=== PATIENT | male | born 1965 | race Caucasian/White ===

== ENCOUNTER 2017-06-27 09:11 | Inpatient (IN) | payer OTHER ==
[~2017-06-27] VITALS: Ht 167.6 cm; Wt 90.7 kg
[2017-06-27 09:51] LABS: ABSOLUTE BASOPHIL COUNT 0 /CUMM (0.0-0.2); ABSOLUTE EOSINOPHIL COUNT 0 /CUMM (0.0-0.7); ABSOLUTE MONOCYTE COUNT 0.5 /CUMM (0.10-0.60); BASOPHIL % 0.3 % (0.0-2.0); EOSINOPHIL % 0.5 % (0-5); GRANULOCYTE % 66.3 % (42.2-75.2); HEMATOCRIT 48.5 % (42-52); MEAN CORPUSCULAR HGB 29.5 PG (27.0-31.0); MEAN CORPUSCULAR VOLUME 86.7 FL (80.0-94.0); MEAN PLATELET VOLUME 7.9 FL (7.4-10.4); PLATELET COUNT 458 /CUMM (130-400); RBC DISTRIBUTION WIDTH 11.7 % (11.5-14.5); RED BLOOD CELL CT 5.59 /CUMM (4.70-6.10); WHITE BLOOD CELL COUNT 7.5 /CUMM (4.8-10.8)
--- NOTE | 2017-06-27 09:51 | ED AMS/SEIZURE/WEAK/DIZZY ---
History of Present Illness General Chief Complaint: Dizziness Stated Complaint: DIZZY X 1 WEEK Source: patient Exam Limitations: no limitations Vital Signs & Intake/Output Vital Signs & Intake/Output Vital Signs Date Time Temp Pulse Resp B/P B/P Pulse O2 O2 Flow FiO2 Mean Ox Delivery Rate 06/27 1205 92 180/124 06/27 1128 97.0 96 18 170/118 98 Room Air 06/27 0926 95.0 125 15 160/98 100 Room Air Room Air Allergies Coded Allergies: No Known Allergies (06/27/17) Triage Note: PT TO ED FOR C/C OF FEELING DIZZY X 1 WEEK, WORSE WHEN STANDING UP. WHEN PT GETS UP HE GETS NAUSEAUS. PT REPORTS 3 WEEKS AGO HE HAD R EYE BLURRINESS WHICH HAS NOT RESOLVED AND A BOUT OF VERTIGO PER PT. ALL NEUROS INTACT IN TRIAGE. Triage Nurses Notes Reviewed? yes Onset: Gradual Duration: week(s): (2), constant, continues in ED, getting worse Timing: multiple episodes today Injury Environment: home Severity: mild, moderate No Modifying Factors: none HPI: 51-year-old male with no past medical history on no medications presents for evaluation of dizziness, lightheadedness, nausea and weakness for the past 2 weeks. Patient states that the dizziness is present when he goes from a sitting to a standing position or with movement of his head. It improves with rest. If he is laying down and not moving he has no symptoms. He states when he gets dizzy he also gets nauseous and feels like he is going to vomit. No abdominal pain chest pain or shortness of breath. He states he has been able to tolerate fluids. He states that about one week ago he got so dizzy and lightheaded that he actually fell over and hit the right side of his head. He did not lose consciousness. He also states having blurred vision mostly in the right eye for the past couple weeks. No focal weakness numbness or tingling. No hemoptysis lower extremity edema. No recent surgery, no history of blood clots. He has not seen a doctor in over 5 years. ([place]) Past History Travel History Traveled to [place] past 21 day No Medical History Any Pertinent Medical History? 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 No ([place]) Review of Systems Review of Systems Constitutional: Reports: weakness. EENTM: Reports: blurred vision. Respiratory: Reports: no symptoms. Cardiovascular: Reports: no symptoms. GI: Reports: no symptoms. Genitourinary: Reports: no symptoms. Musculoskeletal: Reports: no symptoms. Skin: Reports: no symptoms. Neurological/Psychological: Reports: see HPI (DIZZY, LIGHTHEADED, PRESYNCOPE). Hematologic/Endocrine: Reports: no symptoms. Immunologic/Allergic: Reports: no symptoms. All Other Systems: Reviewed and Negative ([place]) Physical Exam Physical Exam General Appearance: well developed/nourished, no apparent distress, alert, awake Head: normal appearance, THERE IS A HEALED LACERATION ABOVE THE RIGHT EYE. nO B[place] TENDERNESS EXTRAOCULAR MOTION IS INTACT WITHOUT PAIN RACCOON EYES OR TUBBS SIGNS Eyes: Bilateral: normal appearance, PERRL, EOMI. Ears, Nose, Throat: normal pharynx, normal ENT inspection, hearing grossly normal Neck: normal inspection, supple, full range of motion, NO jvd NO CAROTID BRUITS Respiratory: normal breath sounds, chest non-tender, no respiratory distress, lungs clear Cardiovascular: normal peripheral pulses, tachycardia (116) Peripheral Pulses: 2+ radial (R), 2+ radial (L) Gastrointestinal: soft, non-tender Back: normal inspection, normal range of motion Extremities: normal range of motion Neurologic/Psych: no motor/sensory deficits, awake, alert, oriented x 3 Skin: intact, normal color, warm/dry Lymphatic: no anterior cervical lele Comments: he has an intact gag reflex Core Measures ACS in differential dx? Yes CVA/TIA Diagnosis Yes NIH Stroke Scale (24 Hours) NIH Stroke Scale (24 Hours) Response Value Level of Consciousness alert 0 LOC Questions answers both correctly 0 LOC Commands obeys both correctly 0 Best Gaze normal 0 Visual Jalloh no visual loss 0 Facial Paresis normal 0 Motor Arm - Left no drift 0 Motor Arm - Right no drift 0 Motor Leg - Left no drift 0 Motor Leg - Right no drift 0 Limb Ataxia no ataxia 0 Sensory normal 0 Best Language no aphasia 0 Dysarthria normal articulation 0 Extinction and Inattention no neglect 0 Total 0 Sepsis Present: No Sepsis Focused Exam Completed? No ([place]) Progress Differential Diagnosis: arrythmia, anemia, benign positional vertigo, CVA/stroke , dehydration, electrolyte imbalance, intracranial Hem., intracranial mass/tumor , labrynthitis, Meniere's disease, migraine HALE, pneumonia, postural hypotension, presyncope, post-traumatic vertigo, subarachnoid Hem., UTI/pyelo Plan of Care: Orders Procedure Date/time Status Heart Healthy Diet 06/27 D Active Patient Data 06/27 1343 Active ED Holding Orders 06/27 1341 Active Admit to inpatient 06/27 1341 Active Vital Signs 06/27 1341 Active Code Status 06/27 1341 Active Add-on Test (ER Only) 06/27 1038 Active Add-on Test (ER Only) 06/27 1033 Active Add-on Test (ER Only) 06/27 1014 Active TSH REFLEX 06/27 0945 Complete SERUM OSMOLALITY 06/27 0945 Complete ETHANOL 06/27 0945 Complete ACETONE 06/27 0945 Complete D-DIMER 06/27 0940 Complete MISTAKE 06/27 0939 Active URINALYSIS 06/27 0939 Complete TROPONIN LEVEL 06/27 0939 Complete MAGNESIUM 06/27 0939 Complete COMPREHENSIVE METABOLIC PANEL 06/27 0939 Complete CBC WITHOUT DIFFERENTIAL 06/27 0939 Complete EKG 06/27 0930 Active Current Medications Sig/[place] Start time Last Medication Dose Stop Time Status Admin Metoprolol Tartrate 5 MG ONCE ONE 06/27 1400 AC (Lopressor) 06/27 1401 Laboratory Tests 06/27/17 1326: Urine Color YEL, Urine Clarity CLEAR, Urine pH 6.0, Ur Specific [place] <= 1.005 , Urine Protein NEG, Urine Ketones 40 H, Urine Nitrite NEG, Urine Bilirubin NEG , Urine Urobilinogen 0.2, Ur Leukocyte Esterase NEG, Ur Microscopic EXAM NOT REQUIRED, Urine Hemoglobin NEG, Urine Glucose >=1000 H 06/27/17 0945: Anion Gap 19 H, Estimated GFR > 60, BUN/Creatinine Ratio 30.0 H, Glucose 488 H, Serum Osmolality 296 H, Calcium 9.9, Magnesium 1.9, Total Bilirubin 1.1, AST 30, ALT 52, Alkaline Phosphatase 99, Troponin I < 0.01, Total Protein 7.3, Albumin 4.4, Globulin 2.9, Albumin/Globulin Ratio 1.5, TSH &T3 &Free T4 Intrp 3.770, CBC w Diff NO MAN DIFF REQ, RBC 5.59, MCV 86.7, MCH 29.5, MCHC 34.0, RDW 11.7, MPV 7.9, Gran % 66.3, Lymphocytes % 26.5, Monocytes % 6.4, Eosinophils % 0.5, Basophils % 0.3, Absolute Granulocytes 5.0, Absolute Lymphocytes 2.0, Absolute Monocytes 0.5, Absolute Eosinophils 0, Absolute Basophils 0, Serum Alcohol < 10.0, Acetone Level NEGATIVE 06/27/17 0940: D-Dimer High Sensitivty < 200 ] Patient seen and evaluated. He's been having dizziness and lightheadedness with movement worse when going from sitting to standing. He is orthostatic dropping from 160 systolic to 120 systolic. He becomes very dizzy and unbalanced when going from sitting to standing. His sugar is also elevated to 488 with an anion gap of 19. He also had an episode of head trauma when he became very dizzy striking the right side of the front of his head. There is no loss of consciousness. CT scan of the head shows a possible cerebellar infarct. His NIH stroke scale currently is 0. He has a gag reflex. He is protecting his airway. Because of possible head trauma radiologist recommends ruling out a vertebral artery dissection. CTA of the head and neck was ordered. Additionally patient has diffuse EKG changes. He has flipped T waves and ST depressions. No chest pain no shortness of breath and initial troponin is negative. Patient will need to be admitted to the hospital for further evaluation. For now will be given fluid boluses pending result of CTA. CTA does not show any evidence of vertebral artery dissection. Aspirin ordered. We'll consult neurology to ensure patient does not require early interventional therapy however patient has been having these symptoms for greater than a week now. Patient will be admitted to telemetry for further evaluation. He will require cardiology consult, neurology consult, IV fluids, endocrine consult, serial labs, serial chest x-rays, telemetry monitoring, MRI of the brain. Case discussed with Dr. Perera he agrees. Dr. PERERA spoke with neurology WHO RECCOMENDS lowering the patient's blood pressure with Lopressor 5 mg. Otherwise do not believe he needs any immediate intervention that would require transfer. Patient will be admitted to telemetry. Diagnostic Imaging: Viewed by Me: CT Scan. Discussed w/RAD: CT Scan. Radiology Impression: PATIENT: SHARON NG PRESENT AGE: 51 PATIENT ACCOUNT NO: [id number] : 65 LOCATION: [facility] ORDERING PHYSICIAN: [place] MINOR SERVICE DATE: 06/27/17 EXAM TYPE: CAT - CT HEAD WO IV CONTRAST EXAMINATION: CT HEAD WITHOUT CONTRAST CLINICAL INFORMATION: Trauma. Question intracranial hemorrhage. Dizziness causing fall with head strike one week ago. COMPARISON: No relevant prior imaging. TECHNIQUE: Contiguous axial imaging was performed from the skull base to vertex without intravenous administration of contrast. DLP: 619.86 mGy-cm FINDINGS: There is an acute triangular infarct within the vascular territory of the left posterior inferior cerebellar artery. No evidence of hemorrhagic transformation. Mass effect within the posterior fossa causes subtle distortion of the fourth ventricle. No clear evidence of obstructive hydrocephalus. There is some hyperdensity within the sella turcica. The etiology of this finding is uncertain. There is no suprasellar mass effect or chiasmatic compression. The calvarium and skull base are intact. Mastoid air cells and middle ear cavities are well aerated. Visualized paranasal sinuses are well-aerated. IMPRESSION: There is acute infarct within the vessel territory of the left posterior inferior cerebellar artery. No evidence of hemorrhagic transformation. Mass effect causes subtle distortion of the fourth ventricle without evidence of overt obstructive hydrocephalus. Given the clinical history of recent trauma the possibility of a vertebral artery dissection should be considered and a CT angiogram of the neck can be obtained to provide better anatomic characterization of the vessels. This critical result was discussed with [place] Brewster at 06/27/2017 11:45 AM and it was ascertained that the content and urgency of the report was understood at the time of direct communication. DICTATED BY: Gopal Contreras MD DATE/TIME DICTATED:06/27/171139 MEDICAL SCIENTIFIC LIAISON: MARK DATE/TIME TRANSCRIBED:06/27/171139, PATIENT: SHARON NG PRESENT AGE: 51 PATIENT ACCOUNT NO: [id number] : LOCATION: [facility] ORDERING PHYSICIAN: Wilton MINOR SERVICE DATE: EXAM TYPE: CAT - CT HEAD ANGIOGRAM; CT NECK ANGIOGRAM EXAMINATION: CT HEAD ANGIOGRAM, CT NECK ANGIOGRAM CLINICAL INFORMATION: Cerebellar stroke. Question vertebral artery dissection. COMPARISON: CT scan of the head 2017. TECHNIQUE: Patternmaker [employer] Bench images were obtained. A CT angiogram of the head and neck was performed in the arterial phase after the intravenous administration of 95 mL Optiray 350. Delayed postcontrast images of the head were also obtained. MIP reconstructions were generated in multiple orientations at the acquisition workstation. Multiple three-dimensional surface rendered images and maximum intensity projection images were generated on a dedicated 3-D lab workstation. Arterial stenoses are measured in accordance with NASCET criteria or similar method if applicable. Total exam dose-length product 1071.03 mGy-cm FINDINGS: Head: An acute infarct within the vascular territory of left posterior inferior cerebellar artery is redemonstrated. There is no abnormal intracranial mass or enhancement on postcontrast images. Mass effect related to the infarct causes subtle distortion of the fourth ventricle. No overt hydrocephalus. De La Torre-white matter differentiation is otherwise preserved with no evidence of acute ischemia elsewhere within the brain. The calvarium and skull base are intact. Mastoid air cells and middle ear cavities are well aerated. Visualized paranasal sinuses are well-aerated. CT angiogram neck: The aortic arch apex is normal and the origins of major aortic branches are grossly patent. The proximal aspect of the left common carotid artery and left vertebral artery are suboptimally assessed due to the extent of streak artifact from intravenous contrast within the left internal jugular vein. Grossly no stenosis of the common carotid arteries. A small amount of atheromatous plaque involves the carotid bifurcations. No stenosis of the extra cranial internal carotid arteries. The cervical segments of the vertebral arteries as well as their origins are grossly patent and there is no evidence of acute vascular dissection. CT angiogram head: Eccentric atheromatous plaque causes mild focal narrowing involving the left intradural vertebral artery segments just distal to its dural insertion and there is also mild focal narrowing involving the midportion of the basilar artery best illustrated on coronal MIP image 10 of 17 series 206. The intracranial internal carotid arteries are widely patent. There is a shallow laterally projecting contour abnormality involving the extradural portion of the cavernous segment of the right internal carotid artery best illustrated on axial image 424 of 608 series 2. This finding either may represent a small plaque ulceration or perhaps a shallow aneurysm. Mild focal narrowing involving the paraclinoid segment of the right internal carotid artery. There is irregular moderate to high-grade narrowing involving the proximal M2 branches of the right middle cerebral artery. Otherwise no high-grade stenosis or proximal large vessel occlusion within the intracranial vessels. Other: Soft tissues of the neck including the thyroid gland are unremarkable. Visualized lung apices are clear. IMPRESSION: An acute infarct involving the left posterior inferior cerebellar artery territory is redemonstrated. No evidence to suggest acute left vertebral artery dissection. There is a small amount of atheromatous plaque involving both carotid bifurcations. No stenosis of the extra cranial internal carotid arteries or cervical segments of the vertebral arteries. There is evidence of cerebrovascular disease as described above. For instance eccentric atheromatous plaque causes mild focal narrowing involving the intradural segment of left vertebral artery and the midportion of the basilar artery. Mild narrowing involving the paraclinoid segment of the right internal carotid artery is noted and there is moderate to severe irregular narrowing involving the proximal M2 branches of the right middle cerebral artery. Otherwise no high-grade stenosis or proximal large vessel occlusion. The left posterior inferior cerebellar artery is not clearly resolved on this examination. DICTATED BY: Ben NICOLE, Gopal Gordillo DATE/TIME DICTATED:06/27/171245 MEDICAL SCIENTIFIC LIAISON:MARK DATE/ TIME TRANSCRIBED:06/27/171245 CONFIDENTIAL, DO NOT COPY WITHOUT APPROPRIATE AUTHORIZATION. <Electronically signed in Other Vendor System> Initial ED EKG: SINUS TACHYCARDIA RATE 116, PROBABLE LEFT ATRIAL ABNORMALITY, ABNORMAL t WAVES CONSIDER ISCHEMIA DIFFUSE LEADS ([place]) Departure Departure Disposition: STILL A PATIENT Condition: Stable Clinical Impression Primary Impression: Cerebellar stroke Secondary Impressions: New onset type 2 diabetes mellitus, Orthostatic hypotension Departure Forms: Customer Survey General Discharge Information ([place]) Admission Note Spoke With: Qi Krishnan MD Documentation of Exam: Documentation of any treatments & extenuating circumstances including Concerns Regarding Discharge (functional status, medication knowledge or non-compliance, living conditions, etc.) that warrant an admission rather than observation: [The patient needs admission for blood pressure reduction, neurology consultation, aspirin therapy, control of hyperglycemia, neuro checks every 6 hours] Spoke with Dr. Simon the neurologist on-call who agreed with the plan of care. Agrees no interventional intervention is needed emergently at this time. PA/NUCLEAR WEAPONS MECHANICAL SPECIALIST Co-Sign Statement Statement: ED Attending supervision documentation- [X] I saw and evaluated the patient. I have also reviewed all the pertinent lab results and diagnostic results. I agree with the findings and the plan of care as documented in the PA's/NUCLEAR WEAP[employer] MECHANICAL SPECIALIST's documentation. [] I have reviewed the ED Record and agree with the PA's/NUCLEAR WEAPONS MECHANICAL SPECIALIST's documentation. [] Additions or exceptions (if any) to the PAs/NUCLEAR WEAPONS MECHANICAL SPECIALIST's note and plan are summarized below: [] (Dre Perera DO) (Dre Perera DO.)
--- NOTE | 2017-06-27 11:51 | CT SCAN REPORT ---
EXAMINATION: CT HEAD WITHOUT CONTRAST CLINICAL INFORMATION: Trauma. Question intracranial hemorrhage. Dizziness causing fall with head strike one week ago. COMPARISON: No relevant prior imaging. TECHNIQUE: Contiguous axial imaging was performed from the skull base to vertex without intravenous administration of contrast. DLP: 619.86 mGy-cm FINDINGS: There is an acute triangular infarct within the vascular territory of the left posterior inferior cerebellar artery. No evidence of hemorrhagic transformation. Mass effect within the posterior fossa causes subtle distortion of the fourth ventricle. No clear evidence of obstructive hydrocephalus. There is some hyperdensity within the sella turcica. The etiology of this finding is uncertain. There is no suprasellar mass effect or chiasmatic compression. The calvarium and skull base are intact. Mastoid air cells and middle ear cavities are well aerated. Visualized paranasal sinuses are well-aerated. IMPRESSION: There is acute infarct within the vessel territory of the left posterior inferior cerebellar artery. No evidence of hemorrhagic transformation. Mass effect causes subtle distortion of the fourth ventricle without evidence of overt obstructive hydrocephalus. Given the clinical history of recent trauma the possibility of a vertebral artery dissection should be considered and a CT angiogram of the neck can be obtained to provide better anatomic characterization of the vessels. This critical result was discussed with [place] Brewster at 06/27/2017 11:45 AM and it was ascertained that the content and urgency of the report was understood at the time of direct communication.
--- NOTE | 2017-06-27 13:03 | CT SCAN REPORT ---
EXAMINATION: CT HEAD ANGIOGRAM, CT NECK ANGIOGRAM CLINICAL INFORMATION: Cerebellar stroke. Question vertebral artery dissection. COMPARISON: CT scan of the head 06/27/2017. TECHNIQUE: Music Engineer images were obtained. A CT angiogram of the head and neck was performed in the arterial phase after the intravenous administration of 95 mL Optiray 350. Delayed postcontrast images of the head were also obtained. MIP reconstructions were generated in multiple orientations at the acquisition workstation. Multiple three-dimensional surface rendered images and maximum intensity projection images were generated on a dedicated 3-D lab workstation. Arterial stenoses are measured in accordance with NASCET criteria or similar method if applicable. Total exam dose-length product 1071.03 mGy-cm FINDINGS: Head: An acute infarct within the vascular territory of left posterior inferior cerebellar artery is redemonstrated. There is no abnormal intracranial mass or enhancement on postcontrast images. Mass effect related to the infarct causes subtle distortion of the fourth ventricle. No overt hydrocephalus. De La Torre-white matter differentiation is otherwise preserved with no evidence of acute ischemia elsewhere within the brain. The calvarium and skull base are intact. Mastoid air cells and middle ear cavities are well aerated. Visualized paranasal sinuses are well-aerated. CT angiogram neck: The aortic arch apex is normal and the origins of major aortic branches are grossly patent. The proximal aspect of the left common carotid artery and left vertebral artery are suboptimally assessed due to the extent of streak artifact from intravenous contrast within the left internal jugular vein. Grossly no stenosis of the common carotid arteries. A small amount of atheromatous plaque involves the carotid bifurcations. No stenosis of the extra cranial internal carotid arteries. The cervical segments of the vertebral arteries as well as their origins are grossly patent and there is no evidence of acute vascular dissection. CT angiogram head: Eccentric atheromatous plaque causes mild focal narrowing involving the left intradural vertebral artery segments just distal to its dural insertion and there is also mild focal narrowing involving the midportion of the basilar artery best illustrated on coronal MIP image 10 of 17 series 206. The intracranial internal carotid arteries are widely patent. There is a shallow laterally projecting contour abnormality involving the extradural portion of the cavernous segment of the right internal carotid artery best illustrated on axial image 424 of 608 series 2. This finding either may represent a small plaque ulceration or perhaps a shallow aneurysm. Mild focal narrowing involving the paraclinoid segment of the right internal carotid artery. There is irregular moderate to high-grade narrowing involving the proximal M2 branches of the right middle cerebral artery. Otherwise no high-grade stenosis or proximal large vessel occlusion within the intracranial vessels. Other: Soft tissues of the neck including the thyroid gland are unremarkable. Visualized lung apices are clear. IMPRESSION: An acute infarct involving the left posterior inferior cerebellar artery territory is redemonstrated. No evidence to suggest acute left vertebral artery dissection. There is a small amount of atheromatous plaque involving both carotid bifurcations. No stenosis of the extra cranial internal carotid arteries or cervical segments of the vertebral arteries. There is evidence of cerebrovascular disease as described above. For instance eccentric atheromatous plaque causes mild focal narrowing involving the intradural segment of left vertebral artery and the midportion of the basilar artery. Mild narrowing involving the paraclinoid segment of the right internal carotid artery is noted and there is moderate to severe irregular narrowing involving the proximal M2 branches of the right middle cerebral artery. Otherwise no high-grade stenosis or proximal large vessel occlusion. The left posterior inferior cerebellar artery is not clearly resolved on this examination.
--- NOTE | 2017-06-27 13:49 | History & Physical ---
Terrell Hassan MDapna 06/27/17 1349: General Information and HPI MD Statement: I have seen and personally examined SHARON NG and documented this H&P. The patient is a 51 year old M who presented with a patient stated chief complaint of [dizziness]. Source of Information: patient Exam Limitations: no limitations History of Present Illness: 51-year-old man with no past medical history came to [facility] with complaints of dizziness, nausea, vomiting with the right eye blurry vision for the past 1 week. Apparently patient was s in his usual state of health until 3 weeks ago, following which patient had right blurry vision. A week patient had ago patient said he "missed his steps"and had a fall with no loss of consciousness/ seizure/accidents. Patient had a abrasion in his right upper eyelid. Same day patient developed dizziness with nausea and vomiting twice. He denied palpitations, chest pain, abdominal pain, vision loss, loss of consciousness, imbalance, trauma, weakness, altered sensation. He endorses tingling and numbness in his feet and hands for the past 5 years. His dizziness, nausea were on and off for the past 1 week with no improvement. Patient went to the urgent care clinic today who referred them to the emergency room. 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 Home Who Do You Live With? self Services at Home: None Primary Language: Macedonian ETOH Use: occasional use Illicit Drug Use: marijuana Functional Ability ADLs Independent: dressing, eating, toileting, bathing. Ambulation: independent IADLs Independent: shopping, housework, finances, food prep, telephone, transportation , medication admin. Review of Systems Review of Systems Constitutional: Reports: no symptoms. EENTM: Reports: visual changes, eye pain. Cardiovascular: Reports: no symptoms. Respiratory: Reports: no symptoms. GI: Reports: nausea, vomiting. Genitourinary: Reports: no symptoms. Musculoskeletal: Reports: no symptoms. Exam & Diagnostic Data Last 24 Hrs of Vital Signs/I&O Vital Signs Date Time Temp Pulse Resp B/P B/P Pulse O2 O2 Flow FiO2 Mean Ox Delivery Rate 06/27 1557 98.3 87 16 173/115 96 Room Air 06/27 1408 97 162/120 06/27 1403 97.6 97 18 162/120 98 Room Air 06/27 1205 92 180/124 06/27 1128 97.0 96 18 170/118 98 Room Air 06/27 0926 95.0 125 15 160/98 100 Room Air Room Air Intake & Output 06/27 1600 06/27 0800 06/27 0000 Intake Total 1000 Output Total Balance 1000 Intake, IV 1000 Patient 200 lb Weight Weight Reported by Patient Measurement Method Physical Exam General Appearance Alert, Oriented X3, Cooperative, No Acute Distress HEENT RT EYE UPPER LID ABRASION Neck Supple, No JVD, No thryomegaly Cardiovascular Regular Rate, Normal S1, Normal S2, SYATOLIC MURMRUR Lungs Normal Air Movement Abdomen Normal Bowel Sounds, Soft, No Tenderness Neurological Normal Gait, Normal Speech, Strength at 5/5 X4 Ext, Normal Tone, Sensation Intact, Cranial Nerves 3-12 NL Extremities No Cyanosis, No Edema, Normal Pulses Last 24 Hrs of Labs/Adonis: Laboratory Tests 06/27/17 1326: Urine Color YEL, Urine Clarity CLEAR, Urine pH 6.0, Ur Specific [place] <= 1.005 , Urine Protein NEG, Urine Ketones 40 H, Urine Nitrite NEG, Urine Bilirubin NEG , Urine Urobilinogen 0.2, Ur Leukocyte Esterase NEG, Ur Microscopic EXAM NOT REQUIRED, Urine Hemoglobin NEG, Urine Glucose >=1000 H 06/27/17 0945: Anion Gap 19 H, Estimated GFR > 60, BUN/Creatinine Ratio 30.0 H, Glucose 488 H, Hemoglobin A1c 13.4 H, Serum Osmolality 296 H, Calcium 9.9, Magnesium 1.9, Total Bilirubin 1.1, AST 30, ALT 52, Alkaline Phosphatase 99, Troponin I < 0.01, Total Protein 7.3, Albumin 4.4, Globulin 2.9, Albumin/Globulin Ratio 1.5, TSH & T3 &Free T4 Intrp 3.770, CBC w Diff NO MAN DIFF REQ, RBC 5.59, MCV 86.7, MCH 29.5, MCHC 34.0, RDW 11.7, MPV 7.9, Gran % 66.3, Lymphocytes % 26.5, Monocytes % 6.4, Eosinophils % 0.5, Basophils % 0.3, Absolute Granulocytes 5.0, Absolute Lymphocytes 2.0, Absolute Monocytes 0.5, Absolute Eosinophils 0, Absolute Basophils 0, Serum Alcohol < 10.0, Acetone Level NEGATIVE 06/27/17 0940: D-Dimer High Sensitivty < 200 Diagnostic Data Other Results HEAD CT There is acute infarct within the vessel territory of the left posterior inferior cerebellar artery. No evidence of hemorrhagic transformation. Mass effect causes subtle distortion of the fourth ventricle without evidence of overt obstructive hydrocephalus. Given the clinical history of recent trauma the possibility of a vertebral artery dissection should be considered and a CT angiogram of the neck can be obtained to provide better anatomic characterization of the vessels. Assessment/Plan Assessment: 51-year-old gentleman with no past medical history came to [facility] with complaints of dizziness, lightheadedness, nausea and vomiting for the past one week on and off, found to have acute stroke, admitted to neuro cardiac telemetry for further evaluation and management ED treatment Patient had head CT, neck and head CTA-which showed An acute infarct involving the left posterior inferior cerebellar artery territory is redemonstrated. No evidence to suggest acute left vertebral artery dissection. There is a small amount of atheromatous plaque involving both carotid bifurcations. No stenosis of the extra cranial internal carotid arteries or cervical segments of the vertebral arteries. There is evidence of cerebrovascular disease as described above. For instance eccentric atheromatous plaque causes mild focal narrowing involving the intradural segment of left vertebral artery and the midportion of the basilar artery. Mild narrowing involving the paraclinoid segment of the right internal carotid artery is noted and there is moderate to severe irregular narrowing involving the proximal M2 branches of the right middle cerebral artery. Otherwise no high-grade stenosis or proximal large vessel occlusion. The left posterior inferior cerebellar artery is not clearly resolved on this examination. Admission vitals-blood pressure 160/98---> 170/118---> 180/124, temperature 97.6 , respiratory rate 18, pulse rate 97 saturating at room air Admission labs-WBC 7.5, hemoglobin 16.5, platelet 458, sodium 132, potassium 3.3 , BUNs 21, creatinine 0.7, glucose 488, TSH 3.7, alkaline phosphatase 99, troponin 0.01, sodium 132, potassium 3.3. ED treatment Patient was given 2 L of normal saline, K-Dur 10 40 mEq once, aspirin 325 mg once, IV metoprolol 5 mg once On-call neurologist Dr. Berger was informed-suggested no intervention at this time. Assessment and plan Acute cerebellar stroke Newly diagnosed diabetes mellitus Hypertension 1. Neuro checks, every 4 and Neurology consult. TPA couldn't be given because he passed the period for TPA. 2. MRI brain 3. Swallow eval, PT and OT. 4. Repeat CBC BEP in a.m. 5. Check lipid panel and continue aspirin 325 mg and statin. 6. Patient glucose 488-we'll do his HbA1c and start him on low-dose sliding scale NovoLog insulin. 7. Troponin negative with no EKG changes, we will do an echocardiogram to rule out any arrhythmia. 8. Patient has high blood pressure upon admission-not on any antihypertensive. We will start him on hydrochlorothiazide 25 mg daily for blood pressure control. Patient code full code Diet-consistent carbohydrate diet DVT prophylaxis-subcutaneous heparin As Ranked By This Provider Problem List: 1. Cerebellar stroke Core Measures/Misc (02/11) Acute Coronary Syndrome ACS Diagnosis: No Congestive Heart Failure Congestive Heart Failure Diagnosis No Cerebrovascular Accident CVA/TIA Diagnosis: Yes NIH Stroke Scale: Total 0 Date Last Known Well: 06/27/17 Time Last Known Well: 1619 Symptom Start Date: 06/13/17 Reason tPA not ordered Medical Contraindication Swallow Evaluation Pass Current/Past Hx AFib/AFlutter No VTE (View Protocol) VTE Risk Factors Age>40 No Mechanical VTE Prophylaxis d/t Other No VTE Pharm Prophylaxis d/t Other Sepsis (View protocol) Sepsis Present: No Zurdo Decker MD 06/27/17 1354: General Information and HPI Allergies/Medications Home Med list Aspirin (Aspirin*) 81 MG TAB.CHEW 1 TAB PO DAILY HEART HEALTH . Atorvastatin Calcium 40 MG TABLET 1 TAB PO 1700 LIPID . Hydrochlorothiazide 12.5 MG CAPSULE 1 TAB PO 7:30AM HTN . Insulin Detemir (Levemir) 100 UNIT/ML VIAL 10 UNITS SC BID DIABETES MELLITUS . Lancets 1 EACH EACH 1 UNIT SC BID DIABETES MELLITUS . Lisinopril 2.5 MG TABLET 1 TAB PO DAILY HTN . Meclizine HCl 12.5 MG TABLET 12.5 MG PO TID PRN DIZZINESS . Metformin Hydochloride (Glucophage) 500 MG TABLET 1 TAB PO 0800 & 1700 DIABETES MELLITUS WITH BREAKFAST AND WITH DINNER. Syringe & Needle,Insulin,1 Ml (Insulin Syringe) 29 GAUGE X 7/16" DISP.SYRIN 1 UNIT SC BID DIABETES MELLITUS . Resident Review Statement Resident Statement: examined this patient, discussed with credit intern, agreed with credit intern, reviewed EMR data (avail), discussed with nursing, discussed with case mgmt, reviewed images, amended to note Other Findings: 51 yo M with no significant pmh came in after feeling dizzy after his dinner one week ago suddenly and since then has been feeling nauseous, vomited twice so far , associated with dizziness but has been eating and drinking well. He also has right sided vision blurring, not worsening. H/o mechanical fall joelle, head hit, wound over right orbit, went to urgent care clinic who sent him to the ED. No h/o seizure, or head trauma other than mentioned above. No fever, chills, weakness/numbing of any part of the body. He endorses tingling sensation in his feet and hands since five years and was told the has has "pre-diabetes" but is not taking any medication. His CAT scan was positive for acute cerebellar stroke on the left side, but did not show any bleeding. His potassium was 3.3, which was repleted in the emergency department and had a high glucose of 488. EKG did not show any rhythm abnormality or signs of ischemia. Clinical examination reveals disturbance in his right upper temporal and lower nasal visual field, will need further reassessment. Of note, he passed bedside swallow screening. He is being admitted in tele floor for the management of following issues: #Acute CVA, cerebellar (ischemic) Patient has signs of acute ischemic CVA (clinical and radiological), but he has passed the period for tPA, so we will admit him to tele floor for serial neuro checks, MRI, neuro consult, ASA, statin, PT/OT/ST. We will give meclizine for symptomatic management of his dizziness. Will await neuro recs regarding further management and need for Carotid Dopplers. #Newly diagnosed Diabetes mellitus: Not taking meds. We will check his HbA1c, accuchecks TID/AC and HS, Insulin Novolog low dose only as he is insulin naive. Endocrinology consult has been placed, will follow the recs. #HTN new diagnosis Patient was found to be hypertensive since he presented to the emergency department. Will start him on hydro-chlorothiazide 25 mg oral daily for blood pressure control. Also will keep him on low-sodium diet. Will get an echocardiogram to rule out any structural functional abnormalities. #Diet: Diabetic diet, with low sodium. #DVT ppx: SQ Heparin #code status: Full code Kamar Houston MD 06/28/17 0922: Attending MD Review Statement Attending Statement Attending MD Statement: examined this patient, discuss w/resident/PA/BUCCARO, agreed w/resident/PA/BUCCARO, reviewed EMR data (avail), discussed with nursing, amended to note Attending Assessment/Plan: Please see my addendum as well.
--- NOTE | 2017-06-27 15:59 | Admission Certification ---
Admission Certification Certification Statement - As attending physician, I certify that at the time of - admission, based on clinical presentation, severity of - symptoms, need for further diagnostic testing and - therapeutic interventions, and risk of adverse outcomes - without in-hospital treatment, in my clinical assessment, - this patient requires an acute hospital stay for a minimum - of two nights or longer. I have also considered psychsocial - factors such as support system, advanced age, financial - issues, cognitive issues, and failed out-patient treatments, - past re-admission history, safety of patient, and lack of - compliance as applicable. Specific rationale supporting this admission is: Hospitalization is required for further evaluation and management of patient's stroke.
--- NOTE | 2017-06-27 16:10 | PN- Att Addend ---
Attending Addendum Attending Brief Note Patient is a 51-year-old male with no known prior medical history who presents to the emergency room with complaints of dizziness has been going on for a few days. Evaluation in the emergency room reveals an acute Infarct involving the left posterior inferior cerebellar artery. There is also evidence of intracranial atherosclerotic disease. Gen. appearance: Well-developed HEENT: Anicteric, no pallor Heart: S1-S2 regular with no audible murmur Lungs: Clear to auscultation bilaterally Abdomen: Soft, nontender with normal bowel sounds Extremities: No pitting edema Skin: Intact with no rashes Neurologic: Patient is alert and oriented 3. Speech is intact with no evidence of cognitive or language dysfunction. Pupils are equal round and reactive to light. He has no visual field defect. Patient however is very with the right eye. Extraocular movements is intact. He has no nystagmus. He has no facial asymmetry. Tongue is midline. He has good muscle bulk and tone bilateral upper and lower extremities. Power is 5 over 5 in all extremities. There is no pronator drift. Deep tendon reflexes are intact. Sensation is intact globally. Gait was not tested. Problems: 1. Stroke; involving the left posterior inferior cerebellar artery. 2. Hypertension 3. Diabetes Mellitus Recommendations: -Admit to the inpatient general medical service. -Begin patient on antiplatelet therapy with aspirin. Begin lipid-lowering therapy with atorvastatin 40 mg daily. -Begin patient on hydrochlorothiazide 25 mg orally daily for blood pressure control. Begin low-sodium diet. Recommend dietary counseling -Obtain echo. -Begin patient on meclizine 12.5 mg orally 3 times a day for his dizziness. Recommend evaluation by PT/OT services. -Neurologic consultation has been placed. Discuss further the need for carotid Dopplers due to poor visualization of the proximal aspect of the left internal carotid artery. -Refer patient to an outpatient primary care provider in [place] at the time of discharge. -Endocrinology consultation in am for his newly diagnosed Diabetes.
[2017-06-27 17:49] VITALS: BP 162/106
[2017-06-27 18:31] VITALS: BP 162/98
--- NOTE | 2017-06-27 20:33 | Cons- Neurology ---
General Information and HPI Consulting Request Date of Consult: 06/27/17 Requested By: Kamar Houston MD Source of Information: patient History of Present Illness: 51-year-old male admitted to hospital today after number of complaints over the past 3 weeks He first noted blurred vision in the right eye Was not painful but has been persistent 1 week ago he became vertiginous and had episodes of vomiting He had one fall and noted that when walking he was imbalanced He is head but not seriously was able to get up on his own He remained at bedrest until he visited a walk-in today who advised that he reported to Hospital emergency room His symptoms have been static although at the vertigo seems to have shown some improvement and he is no longer vomiting He has not had similar problems previously Allergies/Medications Allergies: Coded Allergies: No Known Allergies (06/27/17) Home Med List: No Known Home Medications Current Medications: Current Medications Sig/[place] Start time Last Medication Dose Route Stop Time Status Admin Acetaminophen 650 MG Q6P PRN 06/27 1830 AC PO Acetaminophen 1,000 MG Q6P PRN 06/27 1830 AC IV Aspirin 81 MG DAILY 06/28 1000 AC PO Aspirin 0 .STK-MED ONE 06/27 1328 DC PO Aspirin 325 MG ONCE ONE 06/27 1315 DC 06/27 PO 06/27 1316 1327 Atorvastatin Calcium 40 MG 1700 06/28 1700 AC PO Heparin Sodium 0 .STK-MED ONE 06/27 1433 DC (Porcine) .ROUTE Heparin Sodium 5,000 UNIT Q8 06/27 1400 AC 06/27 (Porcine) SC 1430 Hydrochlorothiazide 25 MG 7:30AM 06/28 0730 AC PO Insulin Aspart 0 TIDAC 06/27 1700 AC 06/27 SC 1622 Meclizine HCl 12.5 MG TID 06/27 1810 AC 06/27 PO 2009 Metoprolol Tartrate 0 .STK-MED ONE 06/27 1409 DC IV Metoprolol Tartrate 5 MG ONCE ONE 06/27 1400 DC 06/27 IV 06/27 1401 1408 Potassium Chloride 0 .STK-MED ONE 06/27 1050 DC PO Potassium Chloride 40 MEQ ONCE ONE 06/27 1045 DC 06/27 PO 06/27 1046 1049 Sodium Chloride 1,000 ML BOLUS ONE 06/27 1130 DC 06/27 IV 06/27 1229 1159 Sodium Chloride 1,000 ML BOLUS ONE 06/27 1045 DC 06/27 IV 06/27 1144 1049 Review of Systems Review of Systems: No headache or diplopia No difficulty with speech or swallowing No chest pains or breathing difficulties No abdominal pain No incontinence No loss of strength extremities No swelling or fevers No loss of consciousness or seizures Past History Travel History Traveled to [place] past 21 day No Medical History Blood Transfusion Hx: No Neurological: NONE Cardiovascular: NONE Respiratory: NONE Gastrointestinal: NONE Hepatic: NONE Renal: NONE Musculoskeletal: NONE Psychiatric: NONE Endocrine: NONE Blood Disorders: NONE 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 Home Who Do You Live With? self Services at Home: None Primary Language: Yi Smoking Status: Former Smoker ETOH Use: occasional use Illicit Drug Use: marijuana Functional Ability ADLs Independent: dressing, eating, toileting, bathing. Ambulation: independent IADLs Independent: shopping, housework, finances, food prep, telephone, transportation , medication admin. ECHO Results (as available) Date of last Echo 06/27/17 Exam & Diagnostic Data Vital Signs and I&O Vital Signs Date Time Temp Pulse Resp B/P B/P Pulse O2 O2 Flow FiO2 Mean Ox Delivery Rate 06/27 1831 98.9 97 20 162/98 94 Room Air 06/27 1749 98.7 97 16 162/106 97 Room Air 06/27 1747 98.7 97 16 162/106 97 Room Air 06/27 1557 98.3 87 16 173/115 96 Room Air 06/27 1408 97 162/120 06/27 1403 97.6 97 18 162/120 98 Room Air 06/27 1205 92 180/124 06/27 1128 97.0 96 18 170/118 98 Room Air 06/27 0926 95.0 125 15 160/98 100 Room Air Room Air Intake & Output 06/27 1600 06/27 0800 06/27 0000 Intake Total 1000 Output Total Balance 1000 Intake, IV 1000 Patient 200 lb Weight Weight Reported by Patient Measurement Method Physical Exam: Alert and oriented Language functions fund of knowledge attention span concentration recall intact Heart sounds normal no carotid bruits distal pulses intact Extraocular movements full pupils equal reactive fundi not adequately visualized on the right Able to read distant numbers from left eye but not from the right No facial weakness or facial sensory loss Palate tongue and shoulders intact hearing grossly intact Normal tone and strength upper and lower extremities Sensory examination intact to modalities Deep tendon reflexes hypoactive throughout Coordinative functions upper and lower extremities appear intact Attempted gait not made due to history of fall Last 48 Hours of Lab Results: Laboratory Tests 06/27 1326 Urines Urine Color (YEL,AMB,STR) YEL Urine Clarity (CLEAR) CLEAR Urine pH (5.0 - 8.0) 6.0 Ur Specific [place] (1.001 - 1.035) <= 1.005 Urine Protein (NEG,<30 MG/DL) NEG Urine Ketones (NEG) 40 H Urine Nitrite (NEG) NEG Urine Bilirubin (NEG) NEG Urine Urobilinogen (0.1 - 1.0 EU/dl) 0.2 Ur Leukocyte Esterase (NEG) NEG Ur Microscopic EXAM NOT REQUIRED Urine Hemoglobin (NEG) NEG Urine Glucose (N MG/DL) >=1000 H 06/27 06/27 0945 0940 Chemistry Sodium (137 - 145 mmol/L) 132 L Potassium (3.5 - 5.1 mmol/L) 3.3 L Chloride (98 - 107 mmol/L) 85 L Carbon Dioxide (22 - 30 mmol/L) 27 Anion Gap (5 - 16) 19 H BUN (9 - 20 mg/dL) 21 H Creatinine (0.7 - 1.2 mg/dL) 0.7 Estimated GFR (>60 ml/min) > 60 BUN/Creatinine Ratio (7 - 25 %) 30.0 H Glucose (65 - 99 mg/dL) 488 H Hemoglobin A1c (4.2 - 5.8 %) 13.4 H Serum Osmolality (285 - 295 MOSM/KG) 296 H Calcium (8.4 - 10.2 mg/dL) 9.9 Magnesium (1.6 - 2.3 mg/dL) 1.9 Total Bilirubin (0.2 - 1.3 mg/dL) 1.1 AST (17 - 59 U/L) 30 ALT (21 - 72 U/L) 52 Alkaline Phosphatase (< 127 U/L) 99 Troponin I (<0.11 ng/ml) < 0.01 Total Protein (6.3 - 8.2 g/dL) 7.3 Albumin (3.5 - 5.0 g/dL) 4.4 Globulin (1.9 - 4.2 gm/dL) 2.9 Albumin/Globulin Ratio (1.1 - 2.2 %) 1.5 TSH &T3 &Free T4 Intrp (0.27 - 4.20 uIU/mL) 3.770 Coagulation D-Dimer High Sensitivty (0 - 243 ng/ml) < 200 Hematology CBC w Diff NO MAN DIFF REQ WBC (4.8 - 10.8 /CUMM) 7.5 RBC (4.70 - 6.10 /CUMM) 5.59 Hgb (14.0 - 18.0 G/DL) 16.5 Hct (42 - 52 %) 48.5 MCV (80.0 - 94.0 FL) 86.7 MCH (27.0 - 31.0 PG) 29.5 MCHC (33.0 - 37.0 G/DL) 34.0 RDW (11.5 - 14.5 %) 11.7 Plt Count (130 - 400 /CUMM) 458 H MPV (7.4 - 10.4 FL) 7.9 Gran % (42.2 - 75.2 %) 66.3 Lymphocytes % (20.5 - 51.1 %) 26.5 Monocytes % (1.7 - 9.3 %) 6.4 Eosinophils % (0 - 5 %) 0.5 Basophils % (0.0 - 2.0 %) 0.3 Absolute Granulocytes (1.4 - 6.5 /CUMM) 5.0 Absolute Lymphocytes (1.2 - 3.4 /CUMM) 2.0 Absolute Monocytes (0.10 - 0.60 /CUMM) 0.5 Absolute Eosinophils (0.0 - 0.7 /CUMM) 0 Absolute Basophils (0.0 - 0.2 /CUMM) 0 Toxicology Serum Alcohol (<10 MG/DL) < 10.0 Acetone Level (NEGATIVE) NEGATIVE Imaging/Other Studies: CT IMPRESSION: There is acute infarct within the vessel territory of the left posterior inferior cerebellar artery. No evidence of hemorrhagic transformation. Mass effect causes subtle distortion of the fourth ventricle without evidence of overt obstructive hydrocephalus. Given the clinical history of recent trauma the possibility of a vertebral artery dissection should be considered and a CT angiogram of the neck can be obtained to provide better anatomic characterization of the vessels. CTA: MPRESSION: An acute infarct involving the left posterior inferior cerebellar artery territory is redemonstrated. No evidence to suggest acute left vertebral artery dissection. There is a small amount of atheromatous plaque involving both carotid bifurcations. No stenosis of the extra cranial internal carotid arteries or cervical segments of the vertebral arteries. There is evidence of cerebrovascular disease as described above. For instance eccentric atheromatous plaque causes mild focal narrowing involving the intradural segment of left vertebral artery and the midportion of the basilar artery. Mild narrowing involving the paraclinoid segment of the right internal carotid artery is noted and there is moderate to severe irregular narrowing involving the proximal M2 branches of the right middle cerebral artery. Otherwise no high-grade stenosis or proximal large vessel occlusion. The left posterior inferior cerebellar artery is not clearly resolved on this examination. Assessment/Plan Assessment: Cerebrovascular accident, posterior fossa, related to diabetes and hypertension Recommendations: Aspirin and statin Diabetic control Gradual reduction of systolic blood pressure to approximately 130s Careful follow-up as outpatient Ophthalmology examination for loss of vision right eye Daily exercise Weight loss Appropriate diet Consult Acknowledgment - Thank you for your consult request.
[2017-06-27 21:37] VITALS: BP 162/100
[2017-06-28 00:38] VITALS: BP 162/108
[2017-06-28 06:38] VITALS: BP 176/108
--- NOTE | 2017-06-28 06:42 | PN- Housestaff ---
Neyda Hassan MD 06/28/17 0642: Subjective Follow-up For: Acute cerebellar stroke Complaints: no complaints Tele-Events Since Last Visit: Sinus rhythm heart rate 80 Subjective: Patient was seen and examined at bedside. No overnight events. He offers no complaints. He denies chest pain, chest pressure, nausea, vomiting, weakness, altered sensation. Review of Systems Constitutional: Reports: no symptoms. Cardiovascular: Reports: no symptoms. Respiratory: Reports: no symptoms. Gastrointestinal: Reports: no symptoms. Genitourinary: Reports: no symptoms. Objective Last 24 Hrs of Vital Signs/I&O Vital Signs Date Time Temp Pulse Resp B/P B/P Pulse O2 O2 Flow FiO2 Mean Ox Delivery Rate 06/28 1302 92 138/90 06/28 1012 138/90 06/28 0745 92 178/110 06/28 0638 99.0 95 20 176/108 93 Room Air 06/28 0038 98 162/108 06/27 2137 99.0 92 20 162/100 98 Room Air 06/27 1831 98.9 97 20 162/98 94 Room Air 06/27 1749 98.7 97 16 162/106 97 Room Air 06/27 1747 98.7 97 16 162/106 97 Room Air 06/27 1557 98.3 87 16 173/115 96 Room Air Intake & Output 06/28 1600 06/28 0800 06/28 0000 Intake Total 0 30 Output Total Balance 0 30 Intake, Oral 0 30 Patient 200 lb Weight Physical Exam General Appearance: Alert, Oriented X3, Cooperative, No Acute Distress HEENT: right peripheral vision reduced Cardiovascular: Regular Rate, Normal S1, Normal S2, No Murmurs Lungs: Clear to Auscultation Abdomen: Normal Bowel Sounds, Soft, No Tenderness, No Hepatospenomegaly Neurological: Strength at 5/5 X4 Ext, Normal Tone, Sensation Intact Extremities: No Cyanosis, No Edema, Normal Pulses Current Medications: Current Medications Sig/[place] Start time Last Medication Dose Route Stop Time Status Admin Acetaminophen 650 MG Q6P PRN 06/27 1830 DCD PO Acetaminophen 1,000 MG Q6P PRN 06/27 1830 DCD IV Aspirin 81 MG DAILY 06/28 1000 DCD 06/28 PO 0743 Atorvastatin Calcium 40 MG 1700 06/28 1700 DCD PO Heparin Sodium 5,000 UNIT Q8 06/27 1400 DCD 06/28 (Porcine) [place] 0541 Hydrochlorothiazide 12.5 MG 7:30AM 06/29 0730 DCD PO Hydrochlorothiazide 25 MG 7:30AM 06/28 0730 DC 06/28 PO 0743 Insulin Aspart 0 TIDAC/HS 06/28 1700 DCD SC Insulin Aspart 0 TIDAC 06/27 1700 DC 06/28 SC 0853 Insulin Detemir 10 UNITS BID 06/28 1000 DCD 06/28 SC 1016 Lisinopril 2.5 MG DAILY 06/28 1123 DCD 06/28 PO 1302 Lisinopril 20 MG DAILY 06/28 1000 DC PO Meclizine HCl 12.5 MG TID 06/27 1810 DCD 06/28 PO 0744 Metformin HCl 500 MG 0800 & 1700 06/28 0930 DCD 06/28 PO 1102 Last 24 Hrs of Lab/Adonis Results Last 24 Hrs of Labs/Mics: Laboratory Tests 06/28/17 0613: Anion Gap 12, Estimated GFR > 60, BUN/Creatinine Ratio 23.3, Magnesium 1.7, Triglycerides 181 H, Cholesterol 189, LDL Cholesterol, Calc 107, HDL Cholesterol 46, Cholesterol/HDL Ratio 4 Assessment/Plan Assessment: 51-year-old gentleman with no past medical history came to [facility] with complaints of dizziness, lightheadedness, nausea and vomiting for the past one week on and off, found to have acute stroke, admitted to neuro cardiac telemetry for further evaluation and management Assessment and plan Acute cerebellar stroke Newly diagnosed diabetes mellitus Hypertension 1. Neuro checks, every 4 and Neurology follow-up appreciated. TPA couldn't be given because he passed the period for TPA. Patient doesn't have any residual neurological deficit. He has right vision reduced. He can follow up with instrumentation and control technician as an outpatient. For his blood pressure he is on hydrocodone Dyazide 25 mg. Today blood pressure is 118/70. We will start him on lisinopril 2.5 mg given his newly diagnosed diabetes and [place] close ties at 12.5 mg. Patient is advised to follow-up with his primary care Physician as an outpatient. Patient is advised to record his blood pressure twice daily and follow up with his primary care physician. Advised to follow-up with his neurologist. Advised to check blood sugar daily and follow-up with Dr. magana as an outpatient. Patient code full code Diet-consistent carbohydrate diet DVT prophylaxis-subcutaneous heparin Problem List: 1. HTN (hypertension) 2. New onset type 2 diabetes mellitus 3. Cerebellar stroke Pain Ratin Pain Location: none Pain Goal: Remain pain free Pain Plan: tylenol Tomorrow's Labs & Rationales: none Rosemarie NICOLEKamar 06/28/17 1239: Attending MD Review Statement Attending Statement Attending MD Statement: examined this patient, discuss w/resident/PA/NETSUITE CONSULTANT, agreed w/resident/PA/NETSUITE CONSULTANT, reviewed EMR data (avail), discussed with nursing, discussed with case mgmt, amended to note Attending Assessment/Plan: Patient seen and examined. Resting comfortably and not in any acute distress. No issues overnight. No events on telemetry monitoring. He has no new complaints this morning. Reports no improvement in blurry vision in the right eye. On examination this morning he has no new Neurologic deficits other than his visual defect. Blood pressure has improved with administration of hydrochlorothiazide this morning. We will be adding low-dose EL inhibitor therapy with lisinopril 2.5 mg orally daily and decreasing the dose of his hydrochlorothiazide to 12.5 mg daily. He will be discharged on aspirin and statin therapy. He has been evaluated by the endocrinology service and recommendations are to begin patient on metformin and Levemir for glycemic control. Patient will also be provided with referral to a primary care provider. He has been counseled on the need for compliance with his medications and follow-up. He has also been counseled on dietary recommendations. This counseling will continue doing follow-up with his primary care provider. Once insulin medication has been completed by nursing staff today, patient will be discharged home.
[2017-06-28 07:45] VITALS: BP 178/110
[2017-06-28] MEDS ORDERED: ATORVASTATIN CA40 M1 PO ×2 (09:46→13:11)
[2017-06-28] MEDS ORDERED: MECLIZINE HCL12.5 M1 PO ×2 (09:46→13:11)
[2017-06-28] MEDS ORDERED: INSULIN SYRING1 EA30 SC ×2 (09:46→13:11)
[2017-06-28] MEDS ORDERED: HYDROCHLOROTHIA25 M1 PO (09:46)
[2017-06-28] MEDS ORDERED: LANCETS1 EACH SC ×2 (09:46→13:11)
[2017-06-28] MEDS ORDERED: GLUCOPHAGE500 M1 PO ×2 (09:46→13:11)
[2017-06-28] MEDS ORDERED: LEVEMIR100 UNIT/1 SC ×2 (09:46→13:11)
[2017-06-28] MEDS ORDERED: LISINOPRIL20 M1 PO (09:46)
[2017-06-28] MEDS ORDERED: ASPIRIN81 M4 PO ×2 (09:46→13:11)
--- NOTE | 2017-06-28 09:51 | Patient Discharge Instructions ---
Discharge Instructions General Discharge Information You were seen/treated for: ACUTE CEREBELLAR STROKE; NEW DIAGNOSIS OF DIABETES MELLITUS; HYPERTENSION Special Instructions: Please check your blood sugar daily and follow up with Associate Business Analyst Dr Welch within one week of discharge. Please record yous blood pressure, ideally twice daily, and bring the record ( log sheet) with you in your follow up with your PCP. Your medication might need further adjustments. Please follow up with eye doctor after discharge. Please follow up with your PCP, neurologist in 1-2 weeks time. Please return to emergency if symptoms worsen. Diet Continue normal diet: No Recommended Diet: Diabetic Activity Full Activity/No Limits: No Activity Self Limited: Yes Acute Coronary Syndrome Inclusion Criteria At DC or during hospital stay patient has or had the following: ACS DIAGNOSIS No Discharge Core Measures Meds if any: Prescribed or Continued at Discharge Meds if any: NOT Prescribed or Continued at Discharge Congestive Heart Failure Inclusion Criteria At DC or during hospital stay patient has or had the following: CHF DIAGNOSIS No Discharge Core Measures Meds if any: Prescribed or Continued at Discharge Meds if any: NOT Prescribed or Continued at Discharge Cerebrovascular accident Inclusion Criteria At DC or during hospital stay patient has or had the following: CVA/TIA Diagnosis Yes Discharge Core Measures Meds if any: Prescribed or Continued at Discharge Antithrombotic Yes (ASA) Statin (required if LDL =>70) Yes Anticoagulant No (NOT INDICATED) Meds if any: NOT Prescribed or Continued at Discharge No Anticoagulant d/t Medical Contraindication (BEYOND PERIOD) Venous thromboembolism Inclusion Criteria VTE Diagnosis No VTE Type NONE VTE Confirmed by (Test) NONE Discharge Core Measures - Per Current guidelines, there needs to be overlap - treatment for the first 5 days of Warfarin therapy. - If discharged on Warfarin prior to 5 days of - overlap therapy, the patient will need to be - assessed for post discharge needs including - *Post discharge parental anticoagulation - *Warfarin and/or parental anticoagulation education - *Follow up date to check INR post discharge At least 5 days overlap therapy as Inpatient No Meds if any: Prescribed or Continued at Discharge Note: Overlap Therapy is Warfarin and Anticoagulant Meds if any: NOT Prescribed or Continued at Discharge
--- NOTE | 2017-06-28 09:52 | ECHOCARDIOGRAM REPORT ---
SHARON NG Age: 51 : 1965 Gender: M Exam Date: 06/27/2017 19:18 Exam Location: [address] Ht (in): 66 Wt (lb): 200 BSA: 2.09 BP: 162 / 98 Ordering Physician: Zurdo Decker MD Referring Physician: Edouard Chavira MD Technologist: Marcy Maravilla [facility] Room Number: [id number] Indications: HYPERTENSION Rhythm: Sinus Technical Quality: Good FINDINGS Left Ventricle Normal size left ventricle. No obvious regional wall motion abnormalities. Left ventricular wall thickness increased. Normal left ventricular ejection fraction estimated at 60-65%. Abnormal left ventricular diastolic filling pattern for age. Right Ventricle Right ventricle not well visualized, grossly normal. Right Atrium Normal right atrial size. Left Atrium Left atrial size at the upper limits of normal. Mitral Valve Mitral valve thickened. Trace mitral regurgitation. Aortic Valve Trileaflet aortic valve. Diffuse thickening (sclerosis) of the aortic valve cusps without reduced excursion. No aortic stenosis. No aortic regurgitation. Tricuspid Valve Tricuspid valve not well visualized, grossly normal. Trace tricuspid regurgitation. Pulmonic Valve Pulmonic valve not well visualized, grossly normal. Pericardium No pericardial effusion. Great Vessels Mildly dilated proximal ascending aorta (tube). CONCLUSIONS 1. Mild aortic sclerosis is present. There is no valvular stenosis or insufficiency. Mild enlargement of the ascending aorta is present. 2. Mild thickening of the mitral leaflets is present with minimal mitral insufficiency. The left atrial chamber is upper normal in size. 3. Physiologic pericardial effusion is present which is hemodynamically insignificant. 4. The left ventricular chamber size is normal. Mild to moderate concentric hypertrophy is present. The ejection fraction is normal with no resting wall motion abnormalities. Mild diastolic dysfunction is noted. 5. The right heart chambers are grossly normal. Minimal tricuspid insufficiency is present. The right ventricular systolic pressure was not accurately assessed. 6. No prior study was available for comparison. Edouard Chavira M.D. (Electronically Signed) Final Date: 28 June 2017 09:51 MEASUREMENTS (Male / Female) Normal Values 2D ECHO LV Diastolic Diameter PLAX 3.9 cm 4.2 - 5.9 / 3.9 - 5.3 cm LV Systolic Diameter PLAX 2.3 cm 2.1 - 4.0 cm LV Fractional Shortening PLAX 41.0 % 25 - 46 % LV Ejection Fraction 2D Teich 72.5 % IVS Diastolic Thickness 1.6 cm LVPW Diastolic Thickness 1.6 cm LV Relative Wall Thickness 0.8 RV Internal Dim ED PLAX 2.4 cm 1.9 - 3.8 cm LVOT Diameter 2.4 cm Aortic Root Diameter 3.6 cm LA Systolic Diameter LX 3.6 cm 3.0 - 4.0 / 2.7 - 3.8 cm LA Volume 27.0 cm 18 - 58 / 22 - 52 cm Ascending Aorta Diameter 4.1 cm DOPPLER AV Peak Velocity 156.0 cm/s AV Peak Gradient 9.7 mmHg AV Mean Velocity 112.0 cm/s AV Mean Gradient 6.0 mmHg AV Velocity Time Integral 26.1 cm LVOT Peak Velocity 93.2 cm/s LVOT Peak Gradient 3.5 mmHg LVOT Mean Velocity 65.7 cm/s LVOT Mean Gradient 2.0 mmHg LVOT Velocity Time Integral 15.2 cm LVOT Stroke Volume 68.8 cm AV Area Cont Eq vti 2.6 cm AV Area Cont Eq pk 2.7 cm MV Peak Velocity 164.0 cm/s MV Peak Gradient 10.8 mmHg MV Mean Velocity 76.5 cm/s MV Mean Gradient 3.0 mmHg Mitral E Point Velocity 58.2 cm/s Mitral A Point Velocity 84.4 cm/s Mitral E to A Ratio 0.7 MV PHT Velocity 83.6 cm/s MV Deceleration Glenn 351.0 cm/s MV Pressure Half Time 71.5 ms MV Area PHT 3.1 cm MV Deceleration Time 140.0 ms PV Peak Velocity 110.0 cm/s PV Peak Gradient 4.8 mmHg PV Mean Velocity 76.2 cm/s PV Mean Gradient 3.0 mmHg PV Velocity Time Integral 17.5 cm LV E' Lateral Velocity 6.2 cm/s Mitral E to LV E' Lateral Ratio 9.3 LV E' Septal Velocity 3.4 cm/s Mitral E to LV E' Septal Ratio 17.1
[2017-06-28 10:12] VITALS: BP 138/90
--- NOTE | 2017-06-28 12:31 | Cons- Endocrinology ---
General Information and HPI Consulting Request Date of Consult: 06/28/17 Requested By: medical team Reason for Consult: management of uncontrolled newly diagnosed DM type 2. Source of Information: patient Exam Limitations: no limitations History of Present Illness: Patient presented with feeling dizzy and unbalanced for one week. He was admitted for stroke due to an acute infarct within the vascular territory of left posterior inferior cerebellar artery. His glucose level was elevated with HbA1c of 13.4%. He doesn't have a hx of diabetes. In hospital, he is on Novolog coverage before meals. His FSGs were 252, 318 and 288. Allergies/Medications Allergies: Coded Allergies: No Known Allergies (06/27/17) Home Med List: Aspirin (Aspirin*) 81 MG TAB.CHEW 1 TAB PO DAILY HEART HEALTH . Atorvastatin Calcium 40 MG TABLET 1 TAB PO 1700 LIPID . Hydrochlorothiazide 12.5 MG CAPSULE 1 TAB PO 7:30AM HTN . Insulin Detemir (Levemir) 100 UNIT/ML VIAL 10 UNITS SC BID DIABETES MELLITUS . Lancets 1 EACH EACH 1 UNIT SC BID DIABETES MELLITUS . Lisinopril 2.5 MG TABLET 1 TAB PO DAILY HTN . Meclizine HCl 12.5 MG TABLET 12.5 MG PO TID PRN DIZZINESS . Metformin Hydochloride (Glucophage) 500 MG TABLET 1 TAB PO 0800 & 1700 DIABETES MELLITUS WITH BREAKFAST AND WITH DINNER. Syringe & Needle,Insulin,1 Ml (Insulin Syringe) 29 GAUGE X 7/16" DISP.SYRIN 1 UNIT SC BID DIABETES MELLITUS . Review of Systems Review of Systems Constitutional: Reports: see HPI. Cardiovascular: Denies: chest pain. Respiratory: Denies: short of breath. GI: Denies: abdominal pain. Neurological/Psychological: Reports: see HPI. Hematologic/Endocrine: Reports: polyuria, polydipsia. 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 Home Who Do You Live With? self Services at Home: None Primary Language: Chinese Smoking Status: Former Smoker ETOH Use: occasional use Illicit Drug Use: marijuana Functional Ability ADLs Independent: dressing, eating, toileting, bathing. Ambulation: independent IADLs Independent: shopping, housework, finances, food prep, telephone, transportation , medication admin. ECHO Results (as available) Date of last Echo 06/27/17 Exam & Diagnostic Data Last 24 Hrs of Vital Signs/I&O Vital Signs Date Time Temp Pulse Resp B/P B/P Pulse O2 O2 Flow FiO2 Mean Ox Delivery Rate 06/28 1012 138/90 06/28 0745 92 178/110 06/28 0638 99.0 95 20 176/108 93 Room Air 06/28 0038 98 162/108 06/27 2137 99.0 92 20 162/100 98 Room Air 06/27 1831 98.9 97 20 162/98 94 Room Air 06/27 1749 98.7 97 16 162/106 97 Room Air 06/27 1747 98.7 97 16 162/106 97 Room Air 06/27 1557 98.3 87 16 173/115 96 Room Air 06/27 1408 97 162/120 06/27 1403 97.6 97 18 162/120 98 Room Air Intake & Output 06/28 1600 06/28 0800 06/28 0000 Intake Total 0 30 Output Total Balance 0 30 Intake, Oral 0 30 Patient 200 lb Weight Physical Exam General Appearance: no apparent distress Neck: normal inspection Respiratory: lungs clear Cardiovascular: regular rate/rhythm Gastrointestinal: soft, non-tender Extremities: no edema Labs/Adonis Results: Laboratory Tests 06/28 06/27 0613 1326 Chemistry Sodium (137 - 145 mmol/L) 135 L Potassium (3.5 - 5.1 mmol/L) 3.1 L Chloride (98 - 107 mmol/L) 98 Carbon Dioxide (22 - 30 mmol/L) 25 Anion Gap (5 - 16) 12 BUN (9 - 20 mg/dL) 14 Creatinine (0.7 - 1.2 mg/dL) 0.6 L Estimated GFR (>60 ml/min) > 60 BUN/Creatinine Ratio (7 - 25 %) 23.3 Magnesium (1.6 - 2.3 mg/dL) 1.7 Triglycerides (<150 mg/dL) 181 H Cholesterol (< 200 MG/DL) 189 LDL Cholesterol, Calc (65 - 129 mg/dL) 107 HDL Cholesterol (40 - 60 mg/dL) 46 Cholesterol/HDL Ratio (0.00 - 4.88 %) 4 Urines Urine Color (YEL,AMB,STR) YEL Urine Clarity (CLEAR) CLEAR Urine pH (5.0 - 8.0) 6.0 Ur Specific [place] (1.001 - 1.035) <= 1.005 Urine Protein (NEG,<30 MG/DL) NEG Urine Ketones (NEG) 40 H Urine Nitrite (NEG) NEG Urine Bilirubin (NEG) NEG Urine Urobilinogen (0.1 - 1.0 EU/dl) 0.2 Ur Leukocyte Esterase (NEG) NEG Ur Microscopic EXAM NOT REQUIRED Urine Hemoglobin (NEG) NEG Urine Glucose (N MG/DL) >=1000 H Assessment/Plan Assessment/Plan Patient presented with feeling dizzy and unbalanced for one week. He was admitted for stroke due to an acute infarct within the vascular territory of left posterior inferior cerebellar artery. His glucose level was elevated with HbA1c of 13.4%. He was newly diagnosed with diabetes type 2. Plan: 1. DM education, glucometer teaching; 2. nutrition consult; 3. start Levemir 10 units twice a day; 4. start metformin 500 mg twice a day with breakfast and with dinner; 5. adjust Novolog coverage before meals and add Novolog coverage at bedtime; detail see the inpatient DM orders. 6. monitor FSGs. will follow. Inpatient Diabetes Orders Before Each Meal: Bolus Insulin: Novolog < 80 mg/dl: no coverage 80-100 mg/dl: no coverage 101-120 mg/dl: no coverage 121-150 mg/dl: no coverage 151-200 mg/dl: 3 units 201-250 mg/dl: 5 units 251-300 mg/dl: 7 units 301-350 mg/dl: 9 units 351-400 mg/dl: 11 units > 400 mg/dl: 12 units Bedtime: Bolus Insulin: Novolog < 80 mg/dl: no coverage 80-100 mg/dl: no coverage 101-120 mg/dl: no coverage 121-150 mg/dl: no coverage 151-200 mg/dl: no coverage 201-250 mg/dl: no coverage 251-300 mg/dl: 2 units 301-350 mg/dl: 3 units 351-400 mg/dl: 4 units > 400 mg/dl: 5 units Consult Acknowledgment - Thank you for your consult request.
[2017-06-28] MEDS ORDERED: HYDROCHLOROTH12.5 M3 PO ×2 (12:50→13:11)
[2017-06-28] MEDS ORDERED: LISINOPRIL2.5 M1 PO ×2 (12:50→13:11)
[2017-06-28 13:02] VITALS: BP 138/90
--- NOTE | 2017-06-28 13:49 | Discharge Summary ---
Visit Information Visit Dates Admission Date: 06/27/17 Discharge Date: 06/28/17 Hospital Course Course Attending Physician: Kamar Houston MD Primary Care Physician: Patient Has No Primary Care Dr Hospital Course: 51-year-old man with no past medical history came to [place] ER with complaints of dizziness, nausea, vomiting with the right eye blurry vision for 1 week. Apparently patient was in his usual state of health until 3 weeks ago, following which patient had right blurry vision. A week ago patient said he "missed his steps"and had a fall with no loss of consciousness/seizure/accidents. Patient had a abrasion in his right upper eyelid. Same day patient developed dizziness with nausea and vomiting twice. He denied palpitations, chest pain, abdominal pain, vision loss, loss of consciousness, imbalance, trauma, weakness, altered sensation. He endorsed tingling and numbness in his feet and hands for the past 5 years. His dizziness, nausea were on and off for the past 1 week with no improvement. Patient went to the urgent care clinic today who referred them to the emergency room. Hospital course #Acute CVA, cerebellar (ischemic) Patient has signs of acute ischemic CVA (clinical and radiological), but he has passed the period for tPA, so we admitted him in telemetry for further evaluation and monitoring. Patient was given aspirin and statin. Patient was seen by neurologist who suggested physical therapy and occupational therapy as outpatient. #Newly diagnosed Diabetes mellitus: Not taking meds. We checked his HbA1c which was 13.4. Endocrinology was involved who suggested to start him on Levemir, metformin. Upon discharge he was advised to follow-up with Dr. magana as outpatient. #HTN new diagnosis Patient was found to be hypertensive since he presented to the emergency department. We started him on hydrochlorothiazide 12.5 mg and lisinopril 2.5 mg and continue the same upon discharge. He was advised to keep a blood pressure log, have low-sodium diet. #Right eye decreased vision Patient had decreased right eye peripheral vision. But this was chronic. We will give referral to Dr. Dejesus as an outpatient. Allergies: Coded Allergies: No Known Allergies (06/27/17) Pertinent Lab Results: echo 28 June 2017 1. Mild aortic sclerosis is present. There is no valvular stenosis or insufficiency. Mild enlargement of the ascending aorta is present. 2. Mild thickening of the mitral leaflets is present with minimal mitral insufficiency. The left atrial chamber is upper normal in size. 3. Physiologic pericardial effusion is present which is hemodynamically insignificant. 4. The left ventricular chamber size is normal. Mild to moderate concentric hypertrophy is present. The ejection fraction is normal with no resting wall motion abnormalities. Mild diastolic dysfunction is noted. 5. The right heart chambers are grossly normal. Minimal tricuspid insufficiency is present. The right ventricular systolic pressure was not accurately assessed. 6. No prior study was available for comparison. Head CT There is acute infarct within the vessel territory of the left posterior inferior cerebellar artery. No evidence of hemorrhagic transformation. Mass effect causes subtle distortion of the fourth ventricle without evidence of overt obstructive hydrocephalus. Given the clinical history of recent trauma the possibility of a vertebral artery dissection should be considered and a CT angiogram of the neck can be obtained to provide better anatomic characterization of the vessels. CT angiogram neck: The aortic arch apex is normal and the origins of major aortic branches are grossly patent. The proximal aspect of the left common carotid artery and left vertebral artery are suboptimally assessed due to the extent of streak artifact from intravenous contrast within the left internal jugular vein. Grossly no stenosis of the common carotid arteries. A small amount of atheromatous plaque involves the carotid bifurcations. No stenosis of the extra cranial internal carotid arteries. The cervical segments of the vertebral arteries as well as their origins are grossly patent and there is no evidence of acute vascular dissection. CT angiogram head: Eccentric atheromatous plaque causes mild focal narrowing involving the left intradural vertebral artery segments just distal to its dural insertion and there is also mild focal narrowing involving the midportion of the basilar artery best illustrated on coronal MIP image 10 of 17 series 206. The intracranial internal carotid arteries are widely patent. There is a shallow laterally projecting contour abnormality involving the extradural portion of the cavernous segment of the right internal carotid artery best illustrated on axial image 424 of 608 series 2. This finding either may represent a small plaque ulceration or perhaps a shallow aneurysm. Mild focal narrowing involving the paraclinoid segment of the right internal carotid artery. There is irregular moderate to high-grade narrowing involving the proximal M2 branches of the right middle cerebral artery. Otherwise no high-grade stenosis or proximal large vessel occlusion within the intracranial vessels. Disposition Summary Disposition Principal Diagnosis: Acute cerebellar stroke left side Additional Diagnosis: Newly diagnosed diabetes, hypertension Discharge Disposition: home or self care Discharge Instructions General Discharge Information Code Status: Full Code Patient's Diet: Heart healthy low-sodium diet Patient's Activity: As tolerated Follow-Up Instructions/Appts: Please check your blood sugar daily and follow up with Provider Contracting Consultant Dr Magana within one week of discharge. Please record yous blood pressure, ideally twice daily, and bring the record ( log sheet) with you in your follow up with your PCP. Your medication might need further adjustments. Please follow up with eye doctor after discharge. Please follow up with your PCP, neurologist in 1-2 weeks time. Medications at Discharge Discharge Medications: Start taking the following new medications: Syringe & Needle,Insulin,1 Ml (Insulin Syringe) 29 GAUGE X 7/16" DISP.SYRIN 1 Unit Inject into fatty tissue TWICE DAILY Qty = 60 Refills = 1 Instructions: . Lancets (Lancets) 1 EACH EACH 1 Unit Inject into fatty tissue TWICE DAILY Qty = 1 Refills = 1 Instructions: . Insulin Detemir (Levemir) 100 UNIT/ML VIAL 10 Units Inject into fatty tissue TWICE DAILY Qty = 6 Refills = 1 Instructions: . Comments: Last Taken: 06/28/17 Time: 1016 Metformin Hydochloride (Glucophage) 500 MG TABLET 1 Tablet ORAL 8am & 5pm Qty = 120 Refills = 1 Instructions: WITH BREAKFAST AND WITH DINNER. Comments: WITH BREAKFAST AND WITH DINNER Last Taken: 06/28/17 Time: 1102 Meclizine HCl (Meclizine HCl) 12.5 MG TABLET 12.5 Milligram ORAL THREE TIMES DAILY as needed for DIZZINESS Qty = 15 No Refills Instructions: . Comments: Last Taken: 06/28/17 Time: 0744 Hydrochlorothiazide (Hydrochlorothiazide) 12.5 MG CAPSULE 1 Tablet ORAL 7:30AM Qty = 30 Refills = 1 Instructions: . Comments: Last Taken: 06/28/17 Time: 0743 Aspirin (Aspirin*) 81 MG TAB.CHEW 1 Tablet ORAL DAILY Qty = 60 Refills = 1 Instructions: . Comments: Last Taken: 06/28/17 Time: 0743 Lisinopril (Lisinopril) 2.5 MG TABLET 1 Tablet ORAL DAILY Qty = 30 Refills = 1 Instructions: . Comments: Last Taken: 06/28/17 Time: 1302 Atorvastatin Calcium (Atorvastatin Calcium) 40 MG TABLET 1 Tablet ORAL 5 PM Qty = 60 Refills = 1 Instructions: . Comments: NOT GIVEN IN HOSPITAL Copies To: Agnieszka NICOLE,Nazia; Oleg NICOLE,Amador Gordillo Attending MD Review Statement Documenting Attending: Dhaval Magana MD Other Findings: Patient remained stable overnight following admission. He had no worsening of his neurologic symptoms. He was safely discharged home. Please see above for further details.
== END 2017-06-28 13:36 | DRG 66 ==
LOC: ERH 09:11 → ERHI 13:41 → 1NO 13:41 → ENRESERV 17:05 → 1NO 18:05 → ENTRNSPT 18:09 → 1NO 18:18 → CMPTRNSPT 18:27 → 1NO 06-28 13:36
PROVIDERS: Physician Assistant Medical; Student in an Organized Health Care Education/Training Program
DX: I63.9 Cerebral infarction, unspecified (principal); E11.9 Type 2 diabetes mellitus without complications; I10 Essential (primary) hypertension; H53.8 Other visual disturbances
CPT/HCPCS: 1NSP; 36415; 81003; 82436; 93005; 93010; 93306; 97116-GO; 97161-GP; 97165-GO; G0480; J0131; J1644; J3490